=== PATIENT | female | born 1965 | race African-American/Black ===

== ENCOUNTER 2020-02-24 23:55 | Emergency (ER) | payer OTHER ==
[~2020-02-24] VITALS: Ht 167.6 cm; Wt 83.5 kg
--- NOTE | 2020-02-24 23:55 | NUR ---
ARPIT BOOTH. TAKEN TO CHAIR C
[2020-02-25] VITALS: BP 160/100
--- NOTE | 2020-02-25 00:08 | NUR ---
Dr. Marshall examining patient.
[2020-02-25] MEDS ORDERED: KETOROLAC 60 MG/2 ML VIAL IM ONE (00:10)
[2020-02-25] MEDS ORDERED: ONDANSETRON 4 MG ODT PO ONE (00:10)
--- NOTE | 2020-02-25 00:15 | NUR ---
PT C/O SMITH X 4 DAYS. PT STATES N/V AND DIZZINESS WELL. PT STOPPED TAKING BP MEDS IN JUNE. PT APPEARS TO BE IN NO DISTRESS. PT VSS. PT AOX4 GCS 15. SKIN IS PINK/WARM/DRY; AAOX4 WITH EVEN AND STEADY GAIT; LUNGS CLEAR BL; HR EVEN AND REGULAR; PT DENIES ANY FEVER, CP, SOB, OR COUGH AT THIS TIME; PATIENT STATES PAIN OF 10/10 AT THIS TIME; VSS; PATIENT POSITIONED FOR COMFORT; HOB ELEVATED; BEDRAILS UP X2; BED DOWN. ER MD MADE AWARE OF PT STATUS.
--- NOTE | 2020-02-25 00:44 | NUR ---
PT TAKEN TO CT VIA WHEELCHAIR.
--- NOTE | 2020-02-25 00:51 | NUR ---
PT RETURN FROM CT
[2020-02-25] MEDS ORDERED: diphenhydrAMINE 50 MG/ML VIAL IM ONE (01:50)
[2020-02-25] MEDS ORDERED: PROCHLORPERAZINE 10 MG/2 ML VIAL IM ONE (01:50)
--- NOTE | 2020-02-25 04:10 | NUR ---
Patient discharged with v/s stable. Written and verbal after care instructions given and explained. Patient alert, oriented and verbalized understanding of instructions. Ambulatory with steady gait. All questions addressed prior to discharge. ID band removed. Patient advised to follow up with PMD. Rx of TRAMADOL AND ATIVAN given. Patient educated on indication of medication including possible reaction and side effects. Opportunity to ask questions provided and answered.
[2020-02-25 04:22] VITALS: BP 154/90
== END 2020-02-25 04:10 | disposition home or self-care (01) ==
LOC: MED 23:55
DX: G44.209 Tension-type headache, unspecified, not intractable (principal); I10 Essential (primary) hypertension
CPT/HCPCS: 70450; 96372; 99284; J0780; J1200; J1885; Q0162

== ENCOUNTER 2020-05-08 15:02 | Emergency (ER) | payer OTHER, SELFPAY ==
[~2020-05-08] VITALS: Ht 172.7 cm; Wt 136.1 kg
[~2020-05-08 15:02] MED LIST: ACET-1182 PO; ATI.5 PO; BISA-213 RC; FLOR250 PO; HYDR-5122 PO; LINE600I6 IV; LOV40I SUBQ; MAGN400S60 PO; MIRT15TA PO; NA P135N RC; NYST1CRE8 TP; POTA10TE30 PO; PRON INH; SPIR50TA PO; VITA1TAB44 PO; VITC1TAB PO; ZOLP5TAB1 PO
[2020-05-08 15:05] VITALS: BP 129/75
--- NOTE | 2020-05-08 15:21 | NUR ---
tom gaona at bedside evaluating pt.
[2020-05-08] MEDS ORDERED: NACL 0.9% 1,000 ML IV ONE (15:30)
--- NOTE | 2020-05-08 15:33 | NUR ---
BIBA FROM [facility] FOR NOT EATING/DRINKING FOR THE LAST FEW DAYS. PT APPEARS LETHARGIC BUT IS ANSWERING QUESTIONS. PT STATED SHE DOES FEEL HUNGRY BUT DOESNT LIKE THE FOOD THEY GIVE HER. O2 SAT RA 92%. ACCUCHECK 102. PT HAS PICC NOTED TO LUE. PT AWAKE,PINK PAPEBRAL CONJUNCTIVA, ANICTERIC SCLERA ,AFIBRILE , TRANSFERED VIA GURNEY, SCE , ROUND SOFT ABDOMEN. PMHXS HTN
--- NOTE | 2020-05-08 15:42 | NUR ---
VERBAL ORDER AND READ BACK KODAK FERRER TO USE LEFT UPPER ARM PICC LINE .
--- NOTE | 2020-05-08 15:53 | NUR ---
LABS AT BEDSIDE .
[2020-05-08 16:24] LABS: BASOPHILS # (AUTO) 0.1 K/uL (0.00-0.22); BASOPHILS % (AUTO) 0.6 % (0.0-2.0); EOSINOPHILS # (AUTO) 0.2 K/uL (0-0.4); EOSINOPHILS % (AUTO) 1.7 % (0.0-4.0); HEMATOCRIT 33.2 % (36-48); HEMOGLOBIN 10.8 g/dL (12.0-16.0); LYMPHOCYTES # (AUTO) 2.8 K/uL (2.5-16.5); LYMPHOCYTES % (AUTO) 23.1 % (20.5-51.1); MEAN CORPUSCULAR HEMOGLOBIN 34 pg (27-31); MEAN CORPUSCULAR HGB CONC 32 g/dL (33-37); MEAN CORPUSCULAR VOLUME 106.2 fL (80-94); MONOCYTES # (AUTO) 1.3 K/uL (0.8-1.0); MONOCYTES % (AUTO) 10.8 % (1.7-9.3); NEUTROPHILS # (AUTO) 7.7 K/uL (1.8-7.7); NEUTROPHILS % (AUTO) 63.8 % (42.2-75.2); PLATELET COUNT (AUTO) 120 K/uL (140-450); RED BLOOD CELL COUNT(AUTO) 3.13 MIL/uL (4.20-5.40); RED CELL DISTRIBUTION WIDTH 16.2 % (11.6-13.7); WHITE BLOOD COUNT (AUTO) 12.1 K/uL (4.8-10.8)
[2020-05-08 16:43] LABS: ANION GAP 11.2 (8-16); CARBON DIOXIDE 26.1 mmol/L (21-32); CREATININE 0.9 mg/dL (0.6-1.3); POTASSIUM 4.3 mmol/L (3.5-5.1)
[2020-05-08 16:46] LABS: ALBUMIN 2.6 g/dL (3.4-5.0); TOTAL BILIRUBIN 0.3 mg/dL (0.0-1.0)
--- NOTE | 2020-05-08 16:48 | NUR ---
verbal order for in and out straight cath read back from KODAK gaona , serjio ellis tried to insert catheter pt refused kodak gaona informed and aware.
--- NOTE | 2020-05-08 16:56 | NUR ---
pt comfortable in bed place bed eaton for urine collected per pt request tom hyatt.
--- NOTE | 2020-05-08 17:08 | NUR ---
check bed eaton for urine with serjio paul at bedside.
--- NOTE | 2020-05-08 17:14 | NUR ---
tom gaona at bedside reevalauting pt.
--- NOTE | 2020-05-08 17:35 | NUR ---
dr avitia at bedside evaluating pt.
--- NOTE | 2020-05-08 18:00 | NUR ---
serjio paul tried to insert strainght cath , but unable to do so . dr avitia and serjio lozano informed.
[2020-05-08 18:07] LABS: PHOSPHORUS 2.4 mg/dL (2.5-4.9)
--- NOTE | 2020-05-08 18:20 | NUR ---
serjio lozano inserted straight cath in and out , was able to collect urine , dr avitia and tom gaona informed and aware.
--- NOTE | 2020-05-08 18:58 | NUR ---
GAVE DINNER TRAY , RAISE HEAD PART OF BED , SIDE RAILS UP X2 AND LOCK AT LOWEST POSITION . PT AWAKE , ALERT.
[2020-05-08 19:08] LABS: APPEARANCE,URINE CLEAR (CLEAR); BILIRUBIN,URINE NEGATIVE (NEGATIVE); BLOOD, URINE NEGATIVE (NEGATIVE); COLOR,URINE YELLOW (YELLOW); LEUKOCYTE ESTERASE ,URINE NEGATIVE (NEGATIVE); NITRITE, URINE NEGATIVE (NEGATIVE); PH,URINE 7.5 (5.0-9.0); UGLUCOSE NEGATIVE (NEGATIVE)
--- NOTE | 2020-05-08 19:09 | NUR ---
GAVE REPORT TO CORTEZ MOORE PT COMFORTABLE IN BED WITH STABLE VSS , SIDE RAILS UP AND LOCK.
--- NOTE | 2020-05-08 19:11 | NUR ---
300ML LEFT IN IV BAG CORTEZ MOORE INFORMED AND AWARE.
--- NOTE | 2020-05-08 19:53 | NUR ---
PT HASN'T EATEN ANY FOOD FROM TRAY. STATES " I HAVE A ICKY TASTE IN MY MOUTH, BUT I'LL DRINK THE TEA." ERMD MADE AWARE.
--- NOTE | 2020-05-08 20:18 | NUR ---
CALLED AND SPOKE TO DAUGHTER MIKE. NOTIFIED HER PT WOULD BE TRANSFERRED BACK TO [facility]. DAUGHTER STATES PT HAS HAD A RAPID DECLINE IN THE PAST MONTH, PRIOR TO PT'S HOSPITALIZATION. DAUGHTER STATES PER [facility] PT HASN'T EATEN IN 3 DAYS. DAUGHTER STATES PT HASN'T WALKED SINCE INITIAL HOSPITALIZATION, BUT STILL RECOGNIZES FAMILY, HOWEVER OCCASSIONALLY HALLUCINATES WHEN THEY'RE AWAY LIKE THEY ARE STILL AROUND HER. EXPLAINED TO DAUGHTER THE PATIENTS VSS, AND LABS ARE WITHIN NORMAL LIMITS PER ERMD.
--- NOTE | 2020-05-08 20:31 | NUR ---
CALLED AND SPOKE WITH EDWIN AT [facility], NOTIFIED HER PT IS READY TO BE TRANSPORTED BACK TO FACILITY. EDWIN STATED PT HAS MEDICARE, AND TRANSPORTATION NEEDS TO BE ARRANGED THROUGH INSURANCE.
--- NOTE | 2020-05-08 21:26 | NUR ---
PT IS LAYING IN BED VSS, R/R EQUAL, AND UNLABORED. PT IS CALLING OUT. "OPEN THE DOOR. BROTHER IS THAT YOU?". PT IS CONFUSED, NON COMBATIVE. EXPLAINED TO PT SHE IS IN THE ER.
[2020-05-08] MEDS ORDERED: LORazepam 1 MG TAB PO ONE (21:45)
[2020-05-08] MEDS ORDERED: MIRTAZAPINE 15 MG TAB PO STA (21:45)
--- NOTE | 2020-05-08 21:48 | NUR ---
CALLED AND SPOKE WITH RADHA AT [facility]. HE CONFIRMED PT'S QHS MEDS. NOTIFIED ERMD, ONE TIME DOSES ORDERED, WILL ADMINISTER TO PT.
--- NOTE | 2020-05-08 22:00 | NUR ---
SALES HOST FROM [employer] [employer] ETA: [id number]
--- NOTE | 2020-05-08 22:40 | NUR ---
PT RESTING IN BED QUIETLY. VSS, R/R EQUAL, AND UNLABORED. SIDE RAIL X2, BED IN LOW POSITION, WILL CONTINUE TO MONITOR.
--- NOTE | 2020-05-08 23:42 | NUR ---
CURRENTLY AWAKE IN BED REPEATEDLY SAYING "[place] LARSEN HELLO." ASKED PT WAS SHE OK, DID SHE NEED ANYTHING SHE STATED YES. VSS, R/R EQUAL, AND UNLABORED WILL CONTINUE TO MONITOR. SIDE RAIL X2, BED IN LOW POSITION.
--- NOTE | 2020-05-09 00:51 | NUR ---
PT LAYING IN BED TALKING TO SELF. YELLED OUT "ANYBODY GOT A CIGARETTE OUT THERE." VSS, R/R EQUAL, AND UNLABORED. SIDE RAIL X2, BED IN LOW POSITION. WILL CONTINUE TO MONITOR.
--- NOTE | 2020-05-09 01:41 | NUR ---
[facility]ICARE, NIGHT GOWN AND BED LINEN CHANGE COMPLETED FOR PT. VSS, R/R EQUAL, AND UNLABORED. SIDE RAIL X2, BED IN LOW POSITION, WILL CONTINUE TO MONITOR.
--- NOTE | 2020-05-09 02:01 | NUR ---
[facility] AT BEDSIDE
[2020-05-09 02:25] VITALS: BP 140/88
--- NOTE | 2020-05-09 02:25 | NUR ---
Patient discharged with v/s stable. Written and verbal after care instructions given and explained to transportation. Ambulance Transport to long term. All questions addressed prior to discharge. Advised to follow up with PMD.
--- NOTE | 2020-05-09 02:51 | NUR ---
CALLED AND GAVE REPORT TO NGOC AT [facility]. INFORMED HIM THERE WERE NO NEW ORDERS FOR THE PT AT THIS TIME. NGOC ALSO CONFIRMED PT MADE HAD MADE IT BACK TO THE FACILITY SAFELY.
--- NOTE | 2020-05-09 12:19 | NUR ---
LATE ENTRY - CONFIRMED WITH RN END TIME FOR NORMAL SALINE IS 1640 05/08/20.
== END 2020-05-09 02:25 | disposition home or self-care (01) ==
LOC: MED 15:02
DX: R62.7 Adult failure to thrive (principal); I12.0 Hypertensive chronic kidney disease with stage 5 chronic kidney disease or end stage renal disease; N18.5 Chronic kidney disease, stage 5; Z91.02 Food additives allergy status; Z79.899 Other long term (current) drug therapy
CPT/HCPCS: 36415; 71045; 80053; 81003; 83735; 84100; 84484; 85025; 93005; 96360; 99285; J7030; Q0092